=== PATIENT | female | born 1950 | race Two or more races ===

== ENCOUNTER 2020-12-17 14:57 | Inpatient (IN) | payer OTHER ==
[~2020-12-17] VITALS: Ht 144.8 cm; Wt 62.5 kg
[2020-12-17 16:54] LABS: Basophils # (auto) 0 10 ^3/uL (0-0.2); Basophils % (auto) 0.6 % (0.0-2.0); Eosinophils # (auto) 0 10 ^3/uL (0-0.8); Eosinophils % (auto) 0.4 % (0.0-7.0); Hematocrit 45.1 % (36.0-46.0); Hemoglobin 15.3 g/dL (12.2-16.2); Lymphocytes # (auto) 1.4 10 ^3/uL (0.4-5.4); Lymphocytes % (auto) 18.1 % (10.0-50.0); Mean Corpuscular Hemoglobin 29.7 pg (28.0-32.0); Mean Corpuscular Volume 87.5 fL (80.0-100.0); Monocytes # (auto) 0.7 10 ^3/uL (0-1.3); Monocytes % (auto) 9.3 % (0.0-12.0); Neutrophils # (auto) 5.5 10 ^3/uL (1.6-8.6); Neutrophils % (auto) 71.6 % (37.0-80.0); Nucleated Red Blood Cells % 0.3 %; Red Blood Cells 5.15 10^6/uL (4.0-5.20); Red Cell Distribution Width 13.7 % (11.8-14.3); White Blood Cell 7.6 10^3/uL (4.4-10.8)
[2020-12-17 16:56] LABS: Albumin 2.9 g/dL (3.4-5.0); Calcium 9.7 mg/dL (8.5-10.1); Potassium 3.4 mmol/L (3.5-5.1)
[2020-12-17 16:58] LABS: BUN/Creatinine Ratio 19.8; Bilirubin, Total 1.6 mg/dL (0.2-1.0); Total Protein 7.5 g/dL (6.4-8.2)
[2020-12-17] MEDS ORDERED: cefTRIAXone 1GM/50ML D5W 50 ML IV ONE (17:30)
[2020-12-17] MEDS ORDERED: CLINDAMYCIN 600MG IV 50 ML IV ONE (17:30)
[2020-12-17] MEDS ORDERED: HYDROcodone-ACET 5/325MG TAB PO PRN (22:30)
[2020-12-17] MEDS ORDERED: NITROGLYCERIN 0.4 MG SL TAB SL PRN (22:30)
[2020-12-17] MEDS: DOXYCYCLINE 100MG/250ML 250 ML IV SCH (22:30)
[2020-12-17] MEDS ORDERED: ALBUMIN 25% 50 ML IV ONE (22:30)
[2020-12-17] MEDS ORDERED: DOCUSATE SOD 100 MG CAP PO PRN (22:30)
[2020-12-17] MEDS ORDERED: POTASSIUM CHL 20 Meq TABLET PO ONE (22:30)
[2020-12-17] MEDS ORDERED: MORPHINE SULFATE INJECTION 2 MG/ML SYRG IV PRN (22:30)
[2020-12-18 05:37] LABS: Basophils # (auto) 0.1 10 ^3/uL (0-0.2); Basophils % (auto) 1.4 % (0.0-2.0); Eosinophils # (auto) 0 10 ^3/uL (0-0.8); Eosinophils % (auto) 0.7 % (0.0-7.0); Hematocrit 40.2 % (36.0-46.0); Hemoglobin 13.4 g/dL (12.2-16.2); Lymphocytes # (auto) 1.2 10 ^3/uL (0.4-5.4); Lymphocytes % (auto) 18.5 % (10.0-50.0); Mean Corpuscular Hemoglobin 29.3 pg (28.0-32.0); Mean Corpuscular Hgb Conc. 33.3 g/dL (32.0-36.0); Monocytes # (auto) 0.6 10 ^3/uL (0-1.3); Monocytes % (auto) 9.2 % (0.0-12.0); Neutrophils # (auto) 4.6 10 ^3/uL (1.6-8.6); Neutrophils % (auto) 70.2 % (37.0-80.0); Red Blood Cells 4.57 10^6/uL (4.0-5.20); Red Cell Distribution Width 13.8 % (11.8-14.3); White Blood Cell 6.6 10^3/uL (4.4-10.8)
[2020-12-18 05:46] LABS: Albumin 2.5 g/dL (3.4-5.0); Calcium 8.7 mg/dL (8.5-10.1); Potassium 3.8 mmol/L (3.5-5.1)
[2020-12-18 05:51] LABS: Bilirubin, Total 1.3 mg/dL (0.2-1.0); Total Protein 6.4 g/dL (6.4-8.2)
[2020-12-18] MEDS: SODIUM CHLOR 0.9% PF (SALINE LOCK) 10ML VIAL/SYR IV SCH ×3 (06:25→22:06)
[2020-12-18] MEDS ORDERED: ASCORBIC ACID 500 MG TAB PO SCH (10:00)
[2020-12-18] MEDS ORDERED: ENOXAPARIN SOD 40 MG/0.4 ML SYRINGE SC SCH (10:00)
[2020-12-18] MEDS ORDERED: ZINC SULFATE 220mg CAP or TAB PO SCH (10:00)
[2020-12-18] MEDS: cefTRIAXone 1GM/50ML D5W 50 ML IV SCH (10:01)
[2020-12-18] MEDS: FAMOTIDINE (10MG/ML) 2ML VL IV SCH (10:42)
[2020-12-18] MEDS: MULTIPLE VITAMIN TAB PO SCH (10:42)
[2020-12-18] MEDS: DOXYCYCLINE 100MG/250ML 250 ML IV SCH ×2 (11:19→22:30)
[2020-12-18] MEDS ORDERED: DEXTROSE (50%) 50ML SYRG IV PRN (11:45)
[2020-12-18 14:37] LABS: Urine Bacteria NONE SEEN /hpf (None Seen); Urine Blood Negative /uL (Negative); Urine Mucus FEW (None Seen); Urine Specific Gravity 1.024 (1.001-1.035); Urine WBC 25 /hpf (0 - 5)
[2020-12-18] MEDS: InsuLIN REG 1unit/0.01ml Soln (100units/ml) SC SCH ×2 (18:09→22:18)
[2020-12-18] MEDS: ACCU-CHEK COMFORT CURVE STRIP VI SCH ×2 (18:10→22:19)
[2020-12-18 20:39] VITALS: BP 133/57
[2020-12-18] MEDS: BUDESONIDE (INHALATION) 180 MCG IH IN SCH (20:51)
[2020-12-18] MEDS: FLORASTOR (S. BOULARDII) 250 MG CAP PO SCH (22:17)
[2020-12-18] MEDS: ENOXAPARIN SOD 40 MG/0.4 ML SYRINGE SC SCH (22:18)
[2020-12-19] MEDS: SODIUM CHLOR 0.9% PF (SALINE LOCK) 10ML VIAL/SYR IV SCH ×3 (06:00→22:00)
[2020-12-19] MEDS: ACCU-CHEK COMFORT CURVE STRIP VI SCH ×4 (06:41→21:07)
[2020-12-19] MEDS: InsuLIN REG 1unit/0.01ml Soln (100units/ml) SC SCH ×4 (06:43→21:08)
[2020-12-19] MEDS: ALBUTEROL SULF HFA 90MCG INH 200DOSE IN PRN ×2 (07:41→23:26)
[2020-12-19] MEDS: BUDESONIDE (INHALATION) 180 MCG IH IN SCH ×2 (07:41→22:00)
[2020-12-19 09:00] VITALS: BP 118/71
[2020-12-19 09:42] LABS: Basophils # (auto) 0 10 ^3/uL (0-0.2); Basophils % (auto) 0.6 % (0.0-2.0); Eosinophils # (auto) 0.1 10 ^3/uL (0-0.8); Eosinophils % (auto) 0.8 % (0.0-7.0); Hematocrit 41.2 % (36.0-46.0); Hemoglobin 13.8 g/dL (12.2-16.2); Lymphocytes # (auto) 1.5 10 ^3/uL (0.4-5.4); Lymphocytes % (auto) 22.5 % (10.0-50.0); Mean Corpuscular Hemoglobin 28.9 pg (28.0-32.0); Mean Corpuscular Hgb Conc. 33.4 g/dL (32.0-36.0); Mean Corpuscular Volume 86.6 fL (80.0-100.0); Monocytes # (auto) 0.7 10 ^3/uL (0-1.3); Monocytes % (auto) 10.4 % (0.0-12.0); Neutrophils # (auto) 4.4 10 ^3/uL (1.6-8.6); Neutrophils % (auto) 65.7 % (37.0-80.0); Red Blood Cells 4.76 10^6/uL (4.0-5.20); Red Cell Distribution Width 13.8 % (11.8-14.3); White Blood Cell 6.7 10^3/uL (4.4-10.8)
[2020-12-19] MEDS: DexAMETHasone SOD PHOS 10MG/1ML VIAL INJ IV SCH (09:47)
[2020-12-19] MEDS: cefTRIAXone 1GM/50ML D5W 50 ML IV SCH (09:47)
[2020-12-19] MEDS: ZINC SULFATE 220mg CAP or TAB PO SCH (09:48)
[2020-12-19] MEDS: FAMOTIDINE (10MG/ML) 2ML VL IV SCH (09:48)
[2020-12-19] MEDS: IVERMECTIN 3 MG TAB PO SCH (09:49)
[2020-12-19] MEDS: MULTIPLE VITAMIN TAB PO SCH (09:49)
[2020-12-19] MEDS: ENOXAPARIN SOD 40 MG/0.4 ML SYRINGE SC SCH ×2 (09:50→21:07)
[2020-12-19] MEDS: ASCORBIC ACID 1,000 MG TAB PO SCH (09:50)
[2020-12-19] MEDS: CHOLECALCIFEROL (VITD3) 2,000 UNIT CAP/TAB PO SCH (09:50)
[2020-12-19 10:00] LABS: Albumin 2.4 g/dL (3.4-5.0); Calcium 8.8 mg/dL (8.5-10.1); Potassium 3.6 mmol/L (3.5-5.1)
[2020-12-19] MEDS: FLORASTOR (S. BOULARDII) 250 MG CAP PO SCH ×3 (10:00→21:06)
[2020-12-19 10:04] LABS: BUN/Creatinine Ratio 17.2; Total Protein 6.2 g/dL (6.4-8.2)
[2020-12-19 10:26] VITALS: BP 137/87
[2020-12-19] MEDS: DOXYCYCLINE 100MG/250ML 250 ML IV SCH ×2 (11:28→21:07)
[2020-12-19 13:00] VITALS: BP 137/87
[2020-12-19] MEDS ORDERED: AMOX500C2 PO (16:06)
[2020-12-19] MEDS ORDERED: IBUP800T26 PO (16:06)
[2020-12-19] MEDS: metroNIDAZOLE 500 MG TAB PO SCH ×2 (16:48→21:06)
[2020-12-19 17:00] VITALS: BP 119/73
[2020-12-19] MEDS: ONDANSETRON HCL 4 MG/2 ML VIAL IV PRN (21:16)
[2020-12-19 22:00] VITALS: BP 116/58
[2020-12-20 05:00] VITALS: BP 102/60
[2020-12-20] MEDS: SODIUM CHLOR 0.9% PF (SALINE LOCK) 10ML VIAL/SYR IV SCH ×3 (05:37→21:50)
[2020-12-20] MEDS: metroNIDAZOLE 500 MG TAB PO SCH ×2 (06:14→15:17)
[2020-12-20] MEDS: ACCU-CHEK COMFORT CURVE STRIP VI SCH ×4 (06:15→21:50)
[2020-12-20] MEDS: InsuLIN REG 1unit/0.01ml Soln (100units/ml) SC SCH ×4 (06:23→21:52)
[2020-12-20] MEDS: FLORASTOR (S. BOULARDII) 250 MG CAP PO SCH ×2 (08:26→21:50)
[2020-12-20] MEDS: FAMOTIDINE (10MG/ML) 2ML VL IV SCH ×2 (08:26→21:50)
[2020-12-20] MEDS: DexAMETHasone SOD PHOS 10MG/1ML VIAL INJ IV SCH (08:26)
[2020-12-20] MEDS: ZINC SULFATE 220mg CAP or TAB PO SCH (08:26)
[2020-12-20] MEDS: cefTRIAXone 1GM/50ML D5W 50 ML IV SCH (08:26)
[2020-12-20] MEDS: ENOXAPARIN SOD 40 MG/0.4 ML SYRINGE SC SCH ×2 (08:27→21:50)
[2020-12-20] MEDS: CHOLECALCIFEROL (VITD3) 2,000 UNIT CAP/TAB PO SCH (08:27)
[2020-12-20] MEDS: IVERMECTIN 3 MG TAB PO SCH (08:27)
[2020-12-20] MEDS: ASCORBIC ACID 1,000 MG TAB PO SCH (08:27)
[2020-12-20] MEDS: MULTIPLE VITAMIN TAB PO SCH (08:27)
[2020-12-20] MEDS: BUDESONIDE (INHALATION) 180 MCG IH IN SCH ×2 (09:36→20:23)
[2020-12-20] MEDS: ALBUTEROL SULF HFA 90MCG INH 200DOSE IN PRN ×2 (09:36→20:23)
[2020-12-20] MEDS ORDERED: REMDESIVIR PER PHARMACY 0 ML IV SCH (11:30)
[2020-12-20] MEDS: DOXYCYCLINE 100MG/250ML 250 ML IV SCH ×2 (12:01→21:53)
[2020-12-20 13:00] VITALS: BP 111/53
[2020-12-20] MEDS ORDERED: REMDESIVIR 200 MG in NS 210ml LOADING DOSE ADULT IV ONE (15:00)
[2020-12-20 17:00] VITALS: BP 116/61
[2020-12-20] MEDS: Glucerna Carbsteady SHAKE Vanilla 8oz PO SCH (17:53)
[2020-12-20 22:00] VITALS: BP 111/56
[2020-12-21] MEDS: ONDANSETRON HCL 4 MG/2 ML VIAL IV PRN (04:14)
[2020-12-21 05:00] VITALS: BP 114/61
[2020-12-21] MEDS: InsuLIN REG 1unit/0.01ml Soln (100units/ml) SC SCH ×4 (06:09→22:06)
[2020-12-21] MEDS: SODIUM CHLOR 0.9% PF (SALINE LOCK) 10ML VIAL/SYR IV SCH ×3 (06:09→22:01)
[2020-12-21] MEDS: ACCU-CHEK COMFORT CURVE STRIP VI SCH ×4 (06:09→22:02)
[2020-12-21] MEDS: BUDESONIDE (INHALATION) 180 MCG IH IN SCH ×2 (07:48→20:28)
[2020-12-21] MEDS: ALBUTEROL SULF HFA 90MCG INH 200DOSE IN PRN ×2 (07:48→20:28)
[2020-12-21] MEDS: Glucerna Carbsteady SHAKE Vanilla 8oz PO SCH ×2 (08:31→18:31)
[2020-12-21 09:00] VITALS: BP 127/70
[2020-12-21 09:32] LABS: Albumin 2.6 g/dL (3.4-5.0)
[2020-12-21 09:35] LABS: BUN/Creatinine Ratio 20.3; Bilirubin, Total 0.7 mg/dL (0.2-1.0); Total Protein 6.3 g/dL (6.4-8.2)
[2020-12-21] MEDS: CHOLECALCIFEROL (VITD3) 2,000 UNIT CAP/TAB PO SCH (11:09)
[2020-12-21] MEDS: IVERMECTIN 3 MG TAB PO SCH (11:09)
[2020-12-21] MEDS: ASCORBIC ACID 1,000 MG TAB PO SCH (11:09)
[2020-12-21] MEDS: FLORASTOR (S. BOULARDII) 250 MG CAP PO SCH ×2 (11:10→22:02)
[2020-12-21] MEDS: ZINC SULFATE 220mg CAP or TAB PO SCH (11:10)
[2020-12-21] MEDS: FAMOTIDINE (10MG/ML) 2ML VL IV SCH ×2 (11:11→22:01)
[2020-12-21] MEDS: MULTIPLE VITAMIN TAB PO SCH (11:11)
[2020-12-21] MEDS: DOXYCYCLINE 100MG/250ML 250 ML IV SCH ×2 (11:12→22:02)
[2020-12-21] MEDS: DexAMETHasone SOD PHOS 10MG/1ML VIAL INJ IV SCH (11:12)
[2020-12-21] MEDS: ENOXAPARIN SOD 40 MG/0.4 ML SYRINGE SC SCH ×2 (11:13→22:02)
[2020-12-21] MEDS: REMDESIVIR 100mg 100 MG in SODIUM CHL 0.9% 230 ML IV SCH (15:11)
[2020-12-21 17:00] VITALS: BP 113/66
[2020-12-21 20:00] VITALS: BP 106/57
[2020-12-21 22:00] VITALS: BP 106/57
[2020-12-22] MEDS: ACETAMINOPHEN 325 MG TAB PO PRN (00:46)
[2020-12-22 05:00] VITALS: BP 110/61
[2020-12-22] MEDS: SODIUM CHLOR 0.9% PF (SALINE LOCK) 10ML VIAL/SYR IV SCH ×3 (05:57→22:27)
[2020-12-22] MEDS: InsuLIN REG 1unit/0.01ml Soln (100units/ml) SC SCH ×4 (06:46→22:28)
[2020-12-22] MEDS: ACCU-CHEK COMFORT CURVE STRIP VI SCH ×4 (06:46→22:29)
[2020-12-22 06:54] LABS: Potassium 4.5 mmol/L (3.5-5.1)
[2020-12-22 07:04] LABS: Albumin 2.6 g/dL (3.4-5.0); BUN/Creatinine Ratio 25.7; Bilirubin, Total 0.7 mg/dL (0.2-1.0); Calcium 9.1 mg/dL (8.5-10.1); Total Protein 6.5 g/dL (6.4-8.2)
[2020-12-22 08:54] VITALS: BP 119/61
[2020-12-22] MEDS: MULTIPLE VITAMIN TAB PO SCH (09:13)
[2020-12-22] MEDS: ZINC SULFATE 220mg CAP or TAB PO SCH (09:13)
[2020-12-22] MEDS: IVERMECTIN 3 MG TAB PO SCH (09:13)
[2020-12-22] MEDS: CHOLECALCIFEROL (VITD3) 2,000 UNIT CAP/TAB PO SCH (09:13)
[2020-12-22] MEDS: ASCORBIC ACID 1,000 MG TAB PO SCH (09:13)
[2020-12-22] MEDS: FLORASTOR (S. BOULARDII) 250 MG CAP PO SCH ×2 (09:14→22:27)
[2020-12-22] MEDS: DexAMETHasone SOD PHOS 10MG/1ML VIAL INJ IV SCH (09:14)
[2020-12-22] MEDS: FAMOTIDINE (10MG/ML) 2ML VL IV SCH ×2 (09:14→22:27)
[2020-12-22] MEDS: DOXYCYCLINE 100MG/250ML 250 ML IV SCH ×2 (09:14→22:29)
[2020-12-22] MEDS: ENOXAPARIN SOD 40 MG/0.4 ML SYRINGE SC SCH ×2 (09:14→22:29)
[2020-12-22] MEDS: Glucerna Carbsteady SHAKE Vanilla 8oz PO SCH ×2 (09:15→19:01)
[2020-12-22] MEDS: BUDESONIDE (INHALATION) 180 MCG IH IN SCH ×2 (12:46→19:40)
[2020-12-22] MEDS: ALBUTEROL SULF HFA 90MCG INH 200DOSE IN PRN ×2 (12:46→19:40)
[2020-12-22 13:00] VITALS: BP 108/55
[2020-12-22] MEDS: REMDESIVIR 100mg 100 MG in SODIUM CHL 0.9% 230 ML IV SCH (15:50)
[2020-12-22 17:00] VITALS: BP 107/60
[2020-12-22 22:00] VITALS: BP 120/71
[2020-12-23 05:00] VITALS: BP 119/62
[2020-12-23] MEDS: SODIUM CHLOR 0.9% PF (SALINE LOCK) 10ML VIAL/SYR IV SCH ×3 (06:00→21:58)
[2020-12-23] MEDS: ACCU-CHEK COMFORT CURVE STRIP VI SCH ×4 (06:32→21:57)
[2020-12-23] MEDS: InsuLIN REG 1unit/0.01ml Soln (100units/ml) SC SCH ×4 (06:32→21:59)
[2020-12-23 06:36] LABS: Potassium 4.1 mmol/L (3.5-5.1)
[2020-12-23 06:46] LABS: Albumin 2.9 g/dL (3.4-5.0); BUN/Creatinine Ratio 22.8; Calcium 9.4 mg/dL (8.5-10.1); Total Protein 6.7 g/dL (6.4-8.2)
[2020-12-23] MEDS: ALBUTEROL SULF HFA 90MCG INH 200DOSE IN PRN ×2 (07:08→22:29)
[2020-12-23] MEDS: BUDESONIDE (INHALATION) 180 MCG IH IN SCH ×2 (07:08→22:29)
[2020-12-23] MEDS: Glucerna Carbsteady SHAKE Vanilla 8oz PO SCH ×2 (07:44→18:00)
[2020-12-23] MEDS: ACETAMINOPHEN 325 MG TAB PO PRN (07:47)
[2020-12-23] MEDS: DOXYCYCLINE 100MG/250ML 250 ML IV SCH ×2 (08:28→21:58)
[2020-12-23 09:00] VITALS: BP 120/54
[2020-12-23] MEDS: FAMOTIDINE (10MG/ML) 2ML VL IV SCH ×2 (10:00→21:57)
[2020-12-23] MEDS: DexAMETHasone SOD PHOS 10MG/1ML VIAL INJ IV SCH (10:00)
[2020-12-23] MEDS: ZINC SULFATE 220mg CAP or TAB PO SCH (10:00)
[2020-12-23] MEDS: MULTIPLE VITAMIN TAB PO SCH (10:01)
[2020-12-23] MEDS: IVERMECTIN 3 MG TAB PO SCH (10:01)
[2020-12-23] MEDS: ASCORBIC ACID 1,000 MG TAB PO SCH (10:01)
[2020-12-23] MEDS: CHOLECALCIFEROL (VITD3) 2,000 UNIT CAP/TAB PO SCH (10:01)
[2020-12-23] MEDS: FLORASTOR (S. BOULARDII) 250 MG CAP PO SCH ×2 (10:01→21:57)
[2020-12-23] MEDS: ENOXAPARIN SOD 40 MG/0.4 ML SYRINGE SC SCH ×2 (10:02→21:57)
[2020-12-23 13:00] VITALS: BP 115/65
[2020-12-23] MEDS ORDERED: METOCLOPRAMIDE HCL 5MG/ml INJ 2ml VIAL IV PRN (14:15)
[2020-12-23] MEDS: REMDESIVIR 100mg 100 MG in SODIUM CHL 0.9% 230 ML IV SCH (16:06)
[2020-12-23 17:00] VITALS: BP 115/64
[2020-12-23 22:00] VITALS: BP_SYST 106; BP_SYST 111; BP_DIAS 65; BP_DIAS 68
[2020-12-24 05:00] VITALS: BP 115/56
[2020-12-24] MEDS: SODIUM CHLOR 0.9% PF (SALINE LOCK) 10ML VIAL/SYR IV SCH ×2 (06:00→14:00)
[2020-12-24] MEDS: InsuLIN REG 1unit/0.01ml Soln (100units/ml) SC SCH ×3 (06:48→17:00)
[2020-12-24] MEDS: ACCU-CHEK COMFORT CURVE STRIP VI SCH ×3 (06:48→17:00)
[2020-12-24] MEDS: BUDESONIDE (INHALATION) 180 MCG IH IN SCH (07:32)
[2020-12-24] MEDS: ALBUTEROL SULF HFA 90MCG INH 200DOSE IN PRN (07:32)
[2020-12-24] MEDS: Glucerna Carbsteady SHAKE Vanilla 8oz PO SCH ×2 (08:00→18:00)
[2020-12-24 08:07] LABS: Albumin 2.9 g/dL (3.4-5.0); Calcium 9.4 mg/dL (8.5-10.1); Potassium 4.4 mmol/L (3.5-5.1)
[2020-12-24 08:12] LABS: Total Protein 6.8 g/dL (6.4-8.2)
[2020-12-24 08:27] LABS: Basophils # (auto) 0 10 ^3/uL (0-0.2); Basophils % (auto) 0.1 % (0.0-2.0); Eosinophils # (auto) 0 10 ^3/uL (0-0.8); Eosinophils % (auto) 0.1 % (0.0-7.0); Hematocrit 47.2 % (36.0-46.0); Hemoglobin 15.6 g/dL (12.2-16.2); Lymphocytes # (auto) 2.4 10 ^3/uL (0.4-5.4); Lymphocytes % (auto) 20.5 % (10.0-50.0); Mean Corpuscular Hgb Conc. 33.1 g/dL (32.0-36.0); Mean Corpuscular Volume 87.6 fL (80.0-100.0); Monocytes # (auto) 0.9 10 ^3/uL (0-1.3); Neutrophils # (auto) 8.2 10 ^3/uL (1.6-8.6); Neutrophils % (auto) 71.3 % (37.0-80.0); Nucleated Red Blood Cells % 0.1 %; Red Blood Cells 5.39 10^6/uL (4.0-5.20); Red Cell Distribution Width 14.3 % (11.8-14.3); White Blood Cell 11.5 10^3/uL (4.4-10.8)
[2020-12-24 09:00] VITALS: BP 129/61
[2020-12-24] MEDS: FLORASTOR (S. BOULARDII) 250 MG CAP PO SCH (10:00)
[2020-12-24] MEDS: ASCORBIC ACID 1,000 MG TAB PO SCH (10:00)
[2020-12-24] MEDS: DexAMETHasone SOD PHOS 10MG/1ML VIAL INJ IV SCH (10:00)
[2020-12-24] MEDS: ENOXAPARIN SOD 40 MG/0.4 ML SYRINGE SC SCH (10:00)
[2020-12-24] MEDS: FAMOTIDINE (10MG/ML) 2ML VL IV SCH (10:00)
[2020-12-24] MEDS: ZINC SULFATE 220mg CAP or TAB PO SCH (10:00)
[2020-12-24] MEDS: MULTIPLE VITAMIN TAB PO SCH (10:00)
[2020-12-24] MEDS: CHOLECALCIFEROL (VITD3) 2,000 UNIT CAP/TAB PO SCH (10:00)
[2020-12-24] MEDS: DOXYCYCLINE 100MG/250ML 250 ML IV SCH (10:30)
[2020-12-24] MEDS ORDERED: CHOL1CAP47 PO (11:27)
[2020-12-24] MEDS ORDERED: ZINC220T6 PO (11:27)
[2020-12-24] MEDS ORDERED: ALBUAER3 IN (11:27)
[2020-12-24] MEDS ORDERED: ASCO10003 PO (11:27)
[2020-12-24] MEDS ORDERED: DEX4T PO (11:27)
[2020-12-24 13:00] VITALS: BP 119/64
[2020-12-24] MEDS: REMDESIVIR 100mg 100 MG in SODIUM CHL 0.9% 230 ML IV SCH (15:00)
[2020-12-24] MEDS ORDERED: AZIT250T8 PO (15:09)
[2020-12-24] MEDS ORDERED: ONDA-144 PO (15:09)
[2020-12-24] MEDS ORDERED: ESOM40CA39 PO (15:09)
[2020-12-24 17:00] VITALS: BP 115/59
[2020-12-24 19:27] VITALS: BP 115/59
== END 2020-12-24 19:50 | disposition home or self-care (01) | DRG 177 ==
LOC: EDBD 14:57 → ER 14:57 → OVERFLOW 22:27 → EAST 12-19 10:27
PROVIDERS: ADMIT Internal Medicine Pulmonary Disease; ATTEND Internal Medicine
PROC: XW033E5 Introduction of Remdesivir Anti-infective into Peripheral Vein, Percutaneous Approach, New Technology Group 5 (ICD-10-PCS; principal; 2020-12-20)
DX: U07.1 COVID-19 (principal); J96.00 Acute respiratory failure, unspecified whether with hypoxia or hypercapnia; J12.82 Pneumonia due to coronavirus disease 2019; N39.0 Urinary tract infection, site not specified; E44.0 Moderate protein-calorie malnutrition; I95.9 Hypotension, unspecified; E87.6 Hypokalemia; K57.30 Diverticulosis of large intestine without perforation or abscess without bleeding; E11.65 Type 2 diabetes mellitus with hyperglycemia; E27.8 Other specified disorders of adrenal gland; Z90.49 Acquired absence of other specified parts of digestive tract; D25.9 Leiomyoma of uterus, unspecified; K21.9 Gastro-esophageal reflux disease without esophagitis; E11.9 Type 2 diabetes mellitus without complications; K29.70 Gastritis, unspecified, without bleeding
CPT/HCPCS: 36415; 36600; 71045; 74176; 76856; 80053; 81001; 82805; 82962; 83036; 83605; 85025; 87040; 87086; 87426; 87493; 93005; 94640; 96365; 96366; 96368; 96372; 96375; G0378; J0696; J1100; J1815; J2405; J3490

== ENCOUNTER 2021-01-04 11:11 | Emergency (ER) | payer OTHER, MEDICAID ==
[~2021-01-04] VITALS: Ht 144.8 cm; Wt 56.7 kg
[~2021-01-04 11:11] MED LIST: ALBUAER3 IN; ASCO10003 PO; AZIT250T8 PO; CHOL1CAP47 PO; DEX4T PO; ESOM40CA39 PO; ONDA-144 PO; ZINC220T6 PO
[2021-01-04 12:02] VITALS: BP 111/61
[2021-01-04] MEDS ORDERED: GASTROGRAFIN 120 ML SOL ONE (12:18)
[2021-01-04] MEDS ORDERED: EZ PAQUE SUSP 12OZ BTL ONE (12:19)
[2021-01-04] MEDS ORDERED: BARIUM SULFATE 98% 340 GM PWDR ONE (12:19)
== END 2021-01-04 12:14 | disposition left against medical advice (07) ==
LOC: ER 11:11
DX: R13.10 Dysphagia, unspecified (principal); Z79.899 Other long term (current) drug therapy